=== PATIENT | male | born 1950 | race Caucasian/White ===

== ENCOUNTER → 2025-02-23 | Outpatient (CLI) | payer MEDICARE, OTHER, SELFPAY ==
--- NOTE | 2025-02-23 12:59 | CDU_ITS ---
Reason For Study Reason For Study: Dizziness and giddiness Rt. Velocities/BP Lt. Velocities/BP Prox CCA 60.7/13.5 cm/sec. Prox CCA 123.5/21.2 cm/sec. Mid CCA 78.7/13.5 cm/sec. Mid CCA 101.6/17.5 cm/sec. Dist CCA 74.9/13.5 cm/sec. Dist CCA 69.5/14.2 cm/sec. Prox ICA 60.0/17.1 cm/sec. Prox ICA 36.7/9.3 cm/sec. Mid ICA 40.8/12.6 cm/sec. Mid ICA 67.7/25.9 cm/sec. Dist ICA 58.8/16.9 cm/sec. Dist ICA 46.8/14.4 cm/sec. Rt. ICA/CCA = 0.8. Lt. ICA/CCA = 0.7. Prox ECA 110.7/8.4 cm/sec. Prox ECA 124.2/10.1 cm/sec. Rt. Vert. 38.4/7.2 cm/sec. Lt. Vert. 41.2/11.0 cm/sec. Right Extracranial There is homogeneous, smooth atherosclerotic plaque noted in the right common carotid artery. There is heterogeneous, irregular atherosclerotic plaque noted in the right internal carotid artery. The right internal carotid artery is very tortuous. There is intimal thickening but no significant atherosclerotic plaque noted in the right external carotid artery. Antegrade flow is noted in the right vertebral artery. Left Extracranial There is intimal thickening but no significant atherosclerotic plaque noted in the left common carotid artery. There is heterogeneous, irregular atherosclerotic plaque noted in the left internal carotid artery. The left internal carotid artery is very tortuous. There is heterogeneous, irregular atherosclerotic plaque noted in the left external carotid artery. Antegrade flow is noted in the left vertebral artery. Procedure Carotid Duplex 77465. This is a Carotid Duplex examination using B-mode, color flow and specral Doppler. Exam performed in department. VL/Carotid Duplex Ultrasound Interpretation Summary Mild (<50%) stenosis right extracranial internal carotid. Mild (<50%) stenosis left extracranial internal carotid. Patent and antegrade vertebrals bilaterally. Ordering Physician: Samantha Cai Referring Physician: Samantha Cai Performed By: Mattie Skelton RVT
== END | disposition home or self-care (01) ==
PROVIDERS: PCP Internal Medicine; Referring Provider Internal Medicine; Visit Provider Internal Medicine
DX: R42 Dizziness and giddiness (principal)
CPT/HCPCS: 93880

== ENCOUNTER 2025-09-13 11:23 | Outpatient (CLI) | payer MEDICARE, OTHER, SELFPAY ==
[2025-09-13 15:24] LABS: Prothrombin Time (Protime)PT. 14.0 SECONDS (11.7-14.9)
[2025-09-13 15:25] LABS: Partial Thromboplast Time 31.3 Seconds (24.1-36.2)
[2025-09-13 16:06] LABS: CRP < 3.00 mg/L (0.0-3.0); LDH 202 U/L (87-241)
[2025-09-18 12:09] LABS: ANTINUCLEAR ANTIBODIES DIRECT Negative (Negative)
[2025-09-20 11:08] LABS: EBV Acute VCA IgM < 36.0 U/mL (0.0-35.9); EBV-VCA IgG 70.3 U/mL (0.0-17.9); HEPATITIS B SURFACE AG Negative (Negative); Hep C Antibodies Non Reactive (Non Reactive); Lyme Ab Screen Interpretation Lyme Abs Unconfirmed (.); Lyme Scn Total Ab w/Rflx Positive (Negative); Testosterone, % Free 1.77 % (1.50-4.20); Testosterone, Free 1.10 ng/dL (5.00-21.00)
== END 2025-09-13 23:59 | disposition home or self-care (01) ==
LOC: CIMLAB 11:23
PROVIDERS: PCP Internal Medicine; Referring Provider Internal Medicine; Visit Provider Internal Medicine
DX: R59.0 Localized enlarged lymph nodes (principal); E11.65 Type 2 diabetes mellitus with hyperglycemia; D69.6 Thrombocytopenia, unspecified; R53.83 Other fatigue; R79.89 Other specified abnormal findings of blood chemistry
CPT/HCPCS: 36415; 80074; 82105; 83615; 84402; 84403; 85610; 85652; 85730; 86038; 86140; 86618; 86664; 86665

== ENCOUNTER → 2025-09-22 | Outpatient (CLI) | payer MEDICARE, OTHER, SELFPAY ==
[2025-09-24 15:08] LABS: Lyme Ab Screen Interpretation Lyme Abs Unconfirmed (.); Lyme Scn Total Ab w/Rflx Positive (Negative)
== END | disposition home or self-care (01) ==
LOC: CIMLAB 14:35
PROVIDERS: PCP Internal Medicine; Referring Provider Internal Medicine; Visit Provider Internal Medicine
DX: R53.83 Other fatigue (principal); A69.20 Lyme disease, unspecified
CPT/HCPCS: 36415; 86617; 86618

== ENCOUNTER → 2025-10-05 | Outpatient (CLI) | payer MEDICARE, OTHER, SELFPAY ==
--- OUTSIDE RECORDS SUMMARY | 2025-10-05 07:46 | XMS RPT_ITS | CCD ---
Author Organization [facility] Care Team Providers Care Battery Tester Name Role Phone Trell JONES, Dr. Singh Primary Care Provider [phone] Trell JONES, Dr. Singh Attending Provider [phone] Trell DO, Dr. Singh Referring Provider Jt SHEPARD, Dr. Lisa Attending Provider Fast, Samantha Referring Unavailable Sloan Waters Attending Unavailable Fast, Samantha Primary Care Unavailable Fast, Samantha Attending Unavailable Fast, Samantha Referring Unavailable Fast, Samantha Primary Care Unavailable Problems Problem Classification Problem Date Documented Da te Episodic/Chronic Conditions associated with dizziness or vertigo (1 source) Dizziness and giddiness; Translations: [Dizziness and giddiness] Onset: 02-28-2025 Episodic Results Test Name Value Interpretation Reference Range Facil ity Carotid Duplex Ultrasoundon 02-23-2025 Carotid Duplex Ultrasound [facility] [address] [place] [address] Carotid Duplex Ultrasound 02/23/25 1306 MR#: [id number] Acct: [id number] Name: JUAN SUAREZ Rep #: [id number] : 1950 74 From: Sloan Waters MD Attending Dr: Dr. Samantha Cai, Status: REG CL I Ordering Dr: Samantha Cai DO Date: 02/23/25 Location: [facility] Sex: M C Admitted: Reason For Study Reason For Study: Dizziness and giddiness Rt. Velocities/BP Lt. Velocities/BP Prox CCA 60.7/13.5 cm/sec. Prox CCA 123.5/21.2 cm/sec. Mid CCA 78.7/13.5 cm/sec. Mid CCA 101.6/17.5 cm/sec. Dist CCA 74.9/13.5 cm/sec. Dist CCA 69.5/14.2 cm/sec. Prox ICA 60.0/17.1 cm/sec. Prox ICA 36.7/9.3 cm/sec. Mid ICA 40.8/12.6 cm/sec. Mid ICA 67.7/25.9 cm/sec. Dist ICA 58.8/16.9 cm/sec. Dist ICA 46.8/14.4 cm/sec. Rt. ICA/CCA = 0.8. Lt. ICA/CCA = 0.7. Prox ECA 110.7/8.4 cm/sec. Prox ECA 124.2/10.1 cm/sec. Rt. Vert. 38.4/7.2 cm/sec. Lt. Vert. 41.2/11.0 cm/sec. Right Extracranial There is homogeneous, smooth atherosclerotic plaque noted in the right common carotid artery. There is heterogeneous, irregular atherosclerotic plaque noted in the right internal carotid artery. The right internal carotid artery is very tortuous. There is intimal thickening but no significant atherosclerotic plaque noted in the right external carotid artery. Antegrade flow is noted in the right vertebral artery. Left Extracranial There is intimal thickening but no significant atherosclerotic plaque noted in the left common carotid artery. There is heterogeneous, irregular atherosclerotic plaque noted in the left internal carotid artery. The left internal carotid artery is very tortuous. There is heterogeneous, irregular atherosclerotic plaque noted in the left external carotid artery. Antegrade flow is noted in the left vertebral artery. Procedure Carotid Duplex 99903. This is a Carotid Duplex examination using B-mode, color flow and specral Doppler. Exam performed in department. VL/Carotid Duplex Ultrasound Interpretation Summary Mild (<50%) stenosis right extracranial internal carotid. Mild (<50%) stenosis left extracranial internal carotid. Patent and antegrade vertebrals bilaterally. Ordering Physician: Samantha Cai Referring Physician: Samantha Cai Performed By: Mattie Skelton RVWilly 02/23/25 1433 Date Sloan Waters MD CC: Dr. Samantha Cai DO Date Dictated: 02/23/25 1306 Date Transcribed: 02/23/25 143 Business Development Consultant: Signed Normal [facility] Duplex ultrasound of carotid artery reportOrdered By: Sloan Waters on 02-23-2025 Study report [facility] [address] [place] [address] Carotid Duplex Ultrasound 02/23/25 1306 MR#: [id number] Acct: [id number] Name: JUAN SUAREZ Rep #:[id number] : 1950 74 From: Sloan Sanders Attending Dr: Dr. Samantha Cai DO atus: REG CLI Ordering Dr: Samantha Cai DO Date: 06/12 Location: [facility] Sex: M C Admitted: Reason For Study Reason For Study: Dizziness and giddiness Rt. Velocities/BP Lt. Velocities/BP Prox CCA 60.7/13.5 cm/sec. Prox CCA 123.5/21.2 cm/sec. Mid CCA 78.7/13.5 cm/sec. Mid CCA 101.6/17.5 cm/sec. Dist CCA 74.9/13.5 cm/sec. Dist CCA 69.5/14.2 cm/sec. Prox ICA 60.0/17.1 cm/sec. Prox ICA 36.7/9.3 cm/sec. Mid ICA 40.8/12.6 cm/sec. Mid ICA 67.7/25.9 cm/sec. Dist ICA 58.8/16.9 cm/sec. Dist ICA 46.8/14.4 cm/sec. Rt. ICA/CCA = 0.8. Lt. ICA/CCA = 0.7. Prox ECA 110.7/8.4 cm/sec. Prox ECA 124.2/10.1 cm/sec. Rt. Vert. 38.4/7.2 cm/sec. Lt. Vert. 41.2/11.0 cm/sec. Right Extracranial There is homogeneous, smooth atherosclerotic plaque noted in the right common carotid artery. There is heterogeneous, irregular atherosclerotic plaque noted in the right internal carotid artery. Theright internal carotid artery is very tortuous. There is intimal thickening but no significant atherosclerotic plaque noted in the right external carotid artery. Antegrade flow is noted in the right vertebral artery. Left Extracranial There is intimal thickening but no significant atherosclerotic plaque noted in the left common carotid artery. There is heterogeneous, irregular atherosclerotic plaque noted in the left internal carotid artery. The left internal carotid artery is very tortuous. There is heterogeneous, irregular atherosclerotic plaque noted in the left external carotid artery. Antegrade flow is noted in the left vertebral artery. Procedure Carotid Duplex 10802. This is a Carotid Duplex examination using B-mode, color flow and specral Doppler. Exam performed in department. VL/Carotid Duplex Ultrasound Interpretation Summary Mild (<50%) stenosis right extracranial internal carotid. Mild (<50%) stenosis left extracranial internal carotid. Patent and antegrade vertebrals bilaterally. Ordering Physician: Samantha Cai Referring Physician: Samantha Cai Performed By: Mattie Skelton, RVT 02/23/25 1433 Date _ Sloan Waters MD CC: Dr. Samantha Cai DO ~ Date Dictated: 02/23/25 1306 Date Transcribed: 02/23/25 143 Business Development Consultant: Signed [facility] Work Phone: Encounters Encounter Date Encounter Type Care Provider Facility Start: 02-23-2025 Non-patient / Non-visit Dr. Sloan ortiz MD -[facility] Start: 02-23-2025 End: 02-23-[address] Samantha Cai DO Work Phone: [facility] Work Phone: Start: 02-23-2025 End: 02-23-[address] Samantha Cai DO -Cardiovascular Services Work Phone: Start: 02-23-2025 End: 02-23-2025 ambulatory Samantha Cai Facility:[facility] Payers Date Payer Category Payer Medicare [id number] 2025 Private Health Insurance [facility] [id number] 2025 Self-pay Unknown [facility] [id number] Unknown [id number] Unknown [id number] Social History Date Type Detail Facility Tobacco smoking stat [facility] Unknown if ever smoked [facility] Work Phone: Start: 1950 Sex Assigned At Male [facility] Evaluation note Note Date & Type Note Facility Evaluation note No assessment information availa ble [facility] Work Phone: Reason for referral (narrative) Note Date & Type Note Facility Reason for referral (narrative) No reason for referral information available [facility] Work Phone: Chief Complaint and Reason for Visit Chief Complaint Admit Date DIZZINESS AND GIDDINESS February 23, 2025 12 :51pm Summary Purpose Family History No Family History Records Found Advance Directives No Advanced Directives Records Found Additional Source Comments Care Teams (unrecognized sec tion and content) Team Status: Active Member Role Status Dates Dr. Samantha Cai DO Primary Care Provider Active Team Status: Inactive Member Role Status Dates Dr. Samantha Cai DO Primary Care Provider Active Start: February 23, 2025 End: February 23, 2025 Dr. Samantha Cai DO Attending Provider Active St art: February 23, 2025 End: February 23, 2025 Dr. Samantha Cai DO Referring Provider Active St art: February 23, 2025 End: February 23, 2025 Team Status: Active Member Role Status Dates Dr. Samantha Cai DO Primary Care Provider Active Start: February 23, 2025 Dr. Samantha Cai DO Referring Provider Active St art: February 23, 2025 Dr. Sloan Waters MD Attending Provider Active S tart: February 23, 2025 Goals (unrecognized section and content) Goals may be documented in a n alternate section (unrecognized sect ion and content) No Status Records Found INFORMATION SOURCE (unrecogn ized section and content) DATE CREATED AUTHOR 03/01/2025 [facility] FOR RECORDS PERTAINING TO PATIENTS WHO ARE OR HAVE BEEN ENROLLED IN A CHEMICAL DEPENDENCY/SUBSTANCEABUSE PROGRAM, SOME INFORMATION MAY BE OMITTED. This clinical summary was aggregated from multiple sources. Caution should be exercised in using it in the provision of clinical care. This summary normalizes information from multiple sources, and as a consequence, information in this document may materially change the coding, format and clinical context of patient data. In addition, data may be omitted in some cases. CLINICAL DECISIONS SHOULD BE BASED ON THE PRIMARY CLINICAL RECORDS. [employer] provides no warranty or guarantee of the accuracy or completeness of information in this document.
--- NOTE | 2025-10-05 08:03 | ECHOD_ITS ---
Reason For Study Reason For Study: Murmur Left Ventricle Normal LV size. Sigmoid septum. Diastolic function is indeterminate. The left ventricular ejection fraction is 60 %. No regional wall motion abnormalities noted. Right Ventricle Normal RV size. Normal systolic function. Atria Normal left atrium. Normal right atrium. Mitral Valve Moderate mitral annular calcification. The mitral valve chordae are thickened and/or calcified. Redundant MV chord. There is no mitral valve stenosis. Mild (1+) mitral valve insufficiency. Tricuspid Valve Normal tricuspid valve. Trivial tricuspid valve insufficiency. Pulmonary artery systolic pressure is 18 mmHg. Aortic Valve Trisinus/trileaflet aortic valve. Moderate focal aortic valve thickening. Mild aortic stenosis. Peak aortic valve gradient 25 mmHg. Mean aortic valve gradient 15 mmHg. Pulmonic Valve Normal pulmonic valve. Great Vessels Normal sized aortic root. Pericardium/Pleural No pericardial effusion. MMode/2D Measurements & Calculations LVIDd: 5.1 cm IVSd: 1.0 cm LVOT diam: 2.1 cm LVIDs: 2.7 cm LVPWd: 0.96 cm LVOT area: 3.6 cm2 RVDd: 3.5 cm FS: 46.3 % Ao root diam: 3.2 cm LAV(MOD-bp): 65.0 ml LVAd ap4: 31.4 cm2 LAV(MOD-bp) Indexed: 31.6 ml/m2 LVLd ap4: 8.5 cm LAV(MOD-sp2): 75.0 ml EDV(MOD-sp4): 96.5 ml LAV(MOD-sp4): 58.1 ml EDV(sp4-el): 98.7 ml LVAs ap4: 19.3 cm2 LVLs ap4: 7.4 cm ESV(MOD-sp4): 44.3 ml ESV(sp4-el): 42.4 ml EF(MOD-sp4): 54.0 % EF(sp4-el): 57.0 % SV(MOD-sp4): 52.1 ml SV(sp4-el): 56.3 ml LA A4 area: 19.8 cm2 SI(MOD-sp4): 25.3 ml/m2 LA dimension(2D): 4.2 cm RA A4 area: 10.3 cm2 TAPSE: 2.0 cm Time Measurements MV dec time: 0.31 sec Doppler Measurements & Calculations MV E max durga: 93.7 cm/sec Lat Peak E' Durga: 7.4 cm/sec Med Peak E' Durga: 5.4 cm/sec MV A max durga: 120.0 cm/sec E/E' lat: 12.6 E/E' med: 17.3 MV E/A: 0.78 MV V2 max: 126.8 cm/sec MV P1/2t max durga: 92.5 cm/sec Ao V2 max: 248.3 cm/sec MV max P.4 mmHg MV P1/2t: 93.5 msec Ao max P.7 mmHg MV V2 mean: 75.5 cm/sec Ao V2 mean: 184.3 cm/sec MV mean P.5 mmHg MV dec slope: 290.0 cm/sec2 Ao mean P.1 mmHg MV V2 VTI: 38.5 cm MVA(P1/2t): 2.4 cm2 Ao V2 VTI: 61.0 cm AV (velocity ratio): 0.49 MVA(VTI): 2.8 cm2 GAURAV(I,D): 1.8 cm2 GAURAV(V,D): 1.7 cm2 LV V1 max: 120.3 cm/sec SV(LVOT): 108.6 ml PA V2 max: 109.6 cm/sec LV V1 max P.8 mmHg LV V1 mean P.2 mmHg LV V1 mean: 83.9 cm/sec LV V1 VTI: 30.1 cm TR max durga: 195.2 cm/sec TR max P.2 mmHg ECHO/Echo Complete Interpretation Summary The left ventricular ejection fraction is 60 %. Moderate mitral annular calcification. Mild mitral valve regurgitation. Mild calcific aortic stenosis. Ordering Physician: Samantha Cai Referring Physician: Samantha Cai Performed By: Torri Gonzales RDCS
== END | disposition home or self-care (01) ==
LOC: US 07:42
PROVIDERS: PCP Internal Medicine; Referring Provider Internal Medicine; Visit Provider Internal Medicine
DX: R79.89 Other specified abnormal findings of blood chemistry (principal); R01.1 Cardiac murmur, unspecified
CPT/HCPCS: 93306

== ENCOUNTER → 2025-10-06 | Outpatient (CLI) | payer MEDICARE, OTHER, SELFPAY ==
--- NOTE | 2025-10-06 07:25 | US_ITS ---
PROCEDURE: ABD LIMITED W/ ELASTOGRAPHY, 10/06/2025 REASON FOR EXAM: ELEVATED LIVER FUNCTION TESTS COMPARISON: None TECHNIQUE: Grayscale and color Doppler imaging of the right upper quadrant was performed. Elastography was performed for non-invasive assessment of liver tissue stiffness utilizing a [employer] S-shear wave imaging unit. FINDINGS: Liver: Echogenic and heterogeneous appearance. 15.2 cm in length. Gallbladder: Cholelithiasis. No significant wall thickening or pericholecystic fluid. Reportedly, sonographic Marshall's was negative. Biliary tree: Unremarkable. CBD measures 4 mm. Pancreas: Partially obscured by shadowing bowel gas, grossly unremarkable as visualized. Right kidney: Unremarkable. 12.9 cm in length. Other: No visualized free fluid. Hepatic elastography: Number of measurements: 8. US probe: CA1-7A. EQI median: 7.3 kPa EQI median velocity: 1.54 m/s IQR/Med: 25.5% (kPa) and 12.3% (m/s). If the IQR/Med is IQR/median >30% (for kPa) or >15% in m/s, the variance in the measurements is a large and the accuracy of the measurement may be in question. US/ABD Limited w/ Elastography IMPRESSION: 1. Abnormal appearance of the liver which is most frequently suggestive of hepa tocellular disease such as steatosis although given heterogeneous appearance a component of fibrosis is possible. Correlate for clinical and laboratory evidence of chronic liver disease. 2. Liver stiffness is 7.3 kPa. Per the below 2020 SRU criteria, this rules out compensated advanced chronic liver disease in the absence of other known clinical signs. If there are known clinical signs, furth er testing may be needed for confirmation. 3. Additional description as above. Assessment is per the Update to the SRU Liver Elastography Consensus Statement (2020) Note that the above assessment of liver fibrosis is vendor-neutral and intended for use in fibrosis related to viral etiologies and non-alcoholic fatty-liver disease (NAFLD); in causes other than viral hepat itis and NAFLD, the cutoff values are currently not well established. In some patients with NAFLD, the cutoff values for cACLD may be lower (7-9 kPa). Note also that in the setting of elevated LFTs, nonfasting or vascular congestion, the stage of lifer fibrosis may be overestimated. Previous SRU reference values: <1.37 m/s (5.7kPa): No to mild fibrosis 1.37 m/s - 2.2 m/s: Moderate to severe fibrosis >2.2 m/s (15kPa): Significant fibrosis / cirrhosis Reading Location: [id number]
--- OUTSIDE RECORDS SUMMARY | 2025-10-06 07:27 | XMS RPT_ITS | CCD ---
Author Organization [facility] Care Team Providers Care Intelligence Chief Name Role Phone Trell JONES, Dr. Singh Primary Care Provider [phone] Trell JONES, Dr. Singh Attending Provider [phone] Trell DO, Dr. Singh Referring Provider Jt [...] Carotid Duplex Ultrasoundon 02-23-2025 Carotid Duplex Ultrasound [facility] [address] [place] [address] Carotid Duplex Ultrasound 02/23/25 1306 MR#: [id number] Acct: [id number] Name: JUAN SUAREZ Rep #: [id number] : 1950 74 From: Sloan Waters MD [...] the left vertebral artery. Procedure Carotid Duplex 20533. This is a Carotid Duplex examination using [...] Dictated: 02/23/25 1306 Date Transcribed: 02/23/25 143 Dimethylaniline Sulfator Operator: Signed Normal [facility] Duplex ultrasound of carotid artery reportOrdered By: Sloan Waters on 02-23-2025 Study report [facility] [address] [place] [address] Carotid Duplex Ultrasound 02/23/25 1306 MR#: [id number] Acct: [id number] Name: JUAN SUAREZ Rep #:[id number] : 1950 74 From: Sloan Sanders Attending [...] the left vertebral artery. Procedure Carotid Duplex 06578. This is a Carotid Duplex examination using [...] Dictated: 02/23/25 1306 Date Transcribed: 02/23/25 143 Dimethylaniline Sulfator Operator: Signed [facility] Work Phone: Encounters Encounter Date Encounter Type Care Provider Facility Start: 02-23-2025 Non-patient / Non-visit Dr. Sloan ortiz MD -[facility] Start: 02-23-2025 End: 02-23-[address] Samantha Cai DO Work Phone: [facility] Work Phone: Start: 02-23-2025 End: 02-23-[address] Samantha Cai DO -Cardiovascular Services Work Phone: Start: 02-23-2025 End: 02-23-2025 ambulatory Samantha Cai Facility:[facility] Payers Date Payer Category Payer Medicare [id number] 2025 Private Health Insurance [facility] [id number] 2025 Self-pay Unknown [facility] [id number] Unknown [id number] Unknown [id number] Social History Date Type Detail Facility Tobacco smoking stat [facility] Unknown if ever smoked [facility] Work Phone: Start: 1950 Sex Assigned At Male [facility] Evaluation note Note Date & Type Note Facility Evaluation note No assessment information availa ble [facility] Work Phone: Reason for referral (narrative) Note Date & Type Note Facility Reason for referral (narrative) No reason for referral information available [facility] Work Phone: Chief Complaint and Reason for [...] Status: Inactive Member Role Status Dates Dr. Smaantha Cai DO Primary Care Provider Active Start: [...] section and content) DATE CREATED AUTHOR 03/01/2025 [facility] FOR RECORDS PERTAINING TO PATIENTS WHO ARE [...] BE BASED ON THE PRIMARY CLINICAL RECORDS. [employer] provides no warranty or guarantee of the accuracy or completeness of information in this document.
== END | disposition home or self-care (01) ==
LOC: US 07:25
PROVIDERS: PCP Internal Medicine; Referring Provider Internal Medicine; Visit Provider Internal Medicine
DX: R79.89 Other specified abnormal findings of blood chemistry (principal)
CPT/HCPCS: 76705; 76981

== ENCOUNTER 2025-10-10 07:53 | Outpatient (CLI) | payer MEDICARE, OTHER, SELFPAY ==
--- NOTE | 2025-10-10 07:55 | CT_ITS ---
PROCEDURE: LIMITED CHEST CT CARDIAC ONLY 10/10/2025 REASON FOR EXAM: UNCONTROLLED TYPE 2 DIABETES MELLITUS WITH HYPERGLYCEMIA TECHNIQUE: Procedure Code: [id number] Modality: CT Procedure: LIMITED CHEST CT CARDIAC ONLY Coronal and Sagittal reconstruction series were provided. CONTRAST: None. One or more dose reduction techniques were used (e.g., Automated exposure control, adjustment of the mA and/or kV according to patient size, use of iterative reconstruction technique). RADIATION DOSE SUMMARY: CTDlvol: 12.19 mGy DLP: 195 mGycm COMPARISON: None. FINDINGS: Coronary artery calcifications. Mild subsegmental atelectatic changes in the lingula. Normal unenhanced main pulmonary artery and right and left pulmonary arteries. Normal bilateral peripheral pulmonary arteries. Normal thoracic aorta and visualized great vessels. There is no demonstrated aortic aneurysm. Normal heart and pericardium. Normal mediastinum. Normal hilar regions. Normal visualized trachea and bronchi. The remaining lungs are well expanded. Normal remaining pulmonary parenchyma. Normal pleura. Normal visualized upper abdomen. CT/Limited Chest CT Cardiac Only IMPRESSION: Coronary artery calcifications. Mild subsegmental atelectatic changes in the lingula. Reading Location: [facility]
--- OUTSIDE RECORDS SUMMARY | 2025-10-10 08:15 | XMS RPT_ITS | CCD ---
Author Organization [facility] Care Team Providers Care Privacy Director Name Role Phone Trell JONES, Dr. Singh Primary Care Provider [phone] Trell JONES, Dr. Singh Attending Provider [phone] Trell DO, Dr. Singh Referring Provider [phone] Jt SHEPARD, Dr. Lisa Attending Provider [phone] Fast, Samantha Referring Unavailable Sloan Waters Attending [...] Carotid Duplex Ultrasoundon 02-23-2025 Carotid Duplex Ultrasound [facility] [address] [place] [address] Carotid Duplex Ultrasound 02/23/25 1306 MR#: [id number] Acct: [id number] Name: JUAN SUAREZ Rep #: [id number] : 1950 74 From: Sloan Waters MD [...] the left vertebral artery. Procedure Carotid Duplex [id number]. This is a Carotid Duplex examination using [...] Dictated: 02/23/25 1306 Date Transcribed: 02/23/25 143 Apparatus Operator: Signed Normal [facility] Duplex ultrasound of carotid artery reportOrdered By: Sloan Waters on 02-23-2025 Study report [facility] [address] [place] [address] Carotid Duplex Ultrasound 02/23/25 1306 MR#: [id number] Acct: [id number] Name: JUAN SUAREZ Rep #:[id number] : 1950 74 From: Sloan Sanders Attending [...] the left vertebral artery. Procedure Carotid Duplex [id number]. This is a Carotid Duplex examination using [...] Dictated: 02/23/25 1306 Date Transcribed: 02/23/25 143 Apparatus Operator: Signed [facility] Work Phone: Encounters Encounter Date Encounter Type Care Provider Facility Start: 02-23-2025 Non-patient / Non-visit Dr. Sloan ortiz MD -[facility] Start: 02-23-2025 End: 02-23-[address] Samantha Cai DO Work Phone: [facility] Work Phone: Start: 02-23-2025 End: 02-23-[address] Samantha Cai DO -Cardi[facility] Services Work Phone: Start: 02-23-2025 End: 02-23-2025 ambulatory Samantha Cai Facility:[facility] Payers Date Payer Category Payer Medicare [id number] 2025 Private Health Insurance [facility] [id number] 2025 Self-pay Unknown [facility] [id number] Unknown [id number] Unknown [id number] Social History Date Type Detail Facility Tobacco smoking stat [facility] Unknown if ever smoked [facility] Work Phone: Start: 1950 Sex Assigned At Male [facility] Evaluation note Note Date & Type Note Facility Evaluation note No assessment information availa ble [facility] Work Phone: Reason for referral (narrative) Note Date & Type Note Facility Reason for referral (narrative) No reason for referral information available [facility] Work Phone: Chief Complaint and Reason for [...] section and content) DATE CREATED AUTHOR 03/01/2025 [facility] FOR RECORDS PERTAINING TO PATIENTS WHO ARE [...] BE BASED ON THE PRIMARY CLINICAL RECORDS. [employer] provides no warranty or guarantee of the accuracy or completeness of information in this document.
--- NOTE | 2025-10-23 07:13 | CCTA.WCONT ---
CCTA w/Cont Coronary Arteries Date of Study:: 10/10/25 Hyperglycemia diabetes mellitus Coronary Calcium Scoring: High-resolution Computed Tomographic imaging of the chest was performed on [10/10/2025], with particular attention paid to the coronary arteries. Intravenous contrast agent was administered per protocol and images reconstructed and displayed. LEFT MAIN CORONARY ARTERY: Arises from the left main coronary artery with no obvious high-grade stenosis present. There is moderate calcification present. [] LEFT ANTERIOR DESCENDING CORONARY ARTERY: Arises from the left anterior descending artery with moderate calcification present. No obvious high-grade stenosis present. [] LEFT CIRCUMFLEX CORONARY ARTERY: [] RIGHT CORONARY ARTERY: [] THORACIC AORTA: [] PULMONARY ARTERY: [] LEFT ATRIUM/APPENDAGE: [] MITRAL VALVE: [] AORTIC VALVE: [] LEFT VENTRICLE: [] CORONARY CALCIUM SCORE: [] Calcium Scoring Interpretation: Different methods to categorize the overall amount of coronary plaque. Overall amount CAC SIS Visual of coronary plaque P1 Mild -100 <2 1-2 vessels with mild amount of plaque P2 Moderate 101-300 3-4 1-2 vessels with moderate amount, 3 vessels with mild amount of plaque P3 Severe 301-999 5-7 3 vessels with moderate amount, 1 vessel with severe amount of plaque P4 Extensive >1000 >8 2-3 vessels with severe amount of plaque
--- NOTE | 2025-10-23 07:17 | CA.SCORE ---
Calcium Scoring Date of Study:: 10/10/25 Indications Indications: DM/hyperglycemia Coronary Calcium Scoring: High-resolution Computed Tomographic imaging of the chest was performed on [10/10/25 ], with particular attention paid to the coronary arteries. Images from the examination were analyzed for the presence and extent of coronary artery calcification , using coronary calcium quantification software. The patient tolerated the procedure well and there were no complications. The results of the coronary calcification analysis are provided below. Findings Coronary Artery Left Main (LM): 308 Left Anterior Descending (LAD): 335 Left Circumflex (LCX): 8.94 Right Coronary Artery (RCA): 2,182 Total Agatston Score: 2,833.94 Percentile Ranking: More than 90% Calcium Scoring Interpretation: Different methods to categorize the overall amount of coronary plaque. Overall amount CAC SIS Visual of coronary plaque P1 Mild -100 <2 1-2 vessels with mild amount of plaque P2 Moderate 101-300 3-4 1-2 vessels with moderate amount, 3 vessels with mild amount of plaque P3 Severe 301-999 5-7 3 vessels with moderate amount, 1 vessel with severe amount of plaque P4 Extensive >1000 >8 2-3 vessels with severe amount of plaque Calcium Score: Severe: 3 vessels w/moderate amount, 1 vessel w/severe amt of plaque Conclusion: Severe 3 vessel atherosclerotic plaquing present
== END 2025-10-10 23:59 | disposition home or self-care (01) ==
PROVIDERS: PCP Internal Medicine; Referring Provider Internal Medicine; Visit Provider Internal Medicine
DX: E11.65 Type 2 diabetes mellitus with hyperglycemia (principal); I25.10 Atherosclerotic heart disease of native coronary artery without angina pectoris
CPT/HCPCS: 75571; 76380